=== PATIENT | female | born 1935 | race Two or more races ===

== ENCOUNTER 2017-12-06 01:29 | Inpatient (IN) | payer MEDICARE, MEDICAID ==
[~2017-12-06] VITALS: Ht 160 cm; Wt 55.8 kg
--- NOTE | 2017-12-06 01:50 | NUR ---
MARKETING COMMUNICATIONS ASSISTANT NOTES RECEIVED PATIENT FROM [facility] VIA [employer]. PATIENT IS ALERT AND ORIENTED X3, RWANDAN SPEAKER ONLY. FAMILY AT BEDSIDE. BREATHING EVEN AND UNLABORED. NO SOB NOTED. CURRENTLY WITH NO COMPLAINTS OF PAIN OR DISCOMFORT. IV ON LEFT HAND #20 AND RIGHT AC #20 INTACT AND PATENT. SKIN DRY AND WARM TO TOUCH. PER REPORT BY FILI SQUIRES FROM [facility], PATIENT AND FAMILY FORGOT MEDICATIONS AT HOME AND THEY DO NOT REMEMBER THE MEDICATIONS THE PATIENT IS TAKING EXCEPT FOR ELIQUIS AND LOSARTAN (UNKNOWN DOSAGES AND FREQUENCIES). INSTRUCTED FAMILY TO BRING MEDICATIONS IN AM. PROCESS OF ADMISSION EXPLAINED TO PATIENT. PICTURES OF SKIN TAKEN AND PUT IN CHART. ADMISSION ORDERS WERE OBTAINED FROM DR. LR. ALL OTHER NEEDS ATTENDED TO. CALL LIGHT WITHIN REACH. BED ON LOWEST LOCKED POSITION. WILL CONTINUE TO MONITOR. Addendum: 12/06/17 at 0522 by ANNE DOWNS RN PATIENT'S VITALS UPON ADMISSION": 176/97 HR 70 RR18 TEMP 98.3F O2SAT 98% RA.
[2017-12-06] MEDS ORDERED: Z GUARD REMEDY 2 OZ OINT TP PRN (02:00)
[2017-12-06] MEDS ORDERED: MAGNESIUM HYDROXIDE 30 ML UDC PO PRN (02:00)
[2017-12-06] MEDS ORDERED: MAG HYDROX/AL HYDROX/SIMETH 30 ML UDC PO PRN (02:00)
[2017-12-06 02:39] LABS: BASOPHILS % (AUTO) 0.3 % (0.0-2.0); EOSINOPHILS % (AUTO) 0.8 % (0.0-6.0); HEMATOCRIT 43 % (33-45); HEMOGLOBIN 14.5 g/dL (11.5-14.8); LYMPHOCYTES # (AUTO) 2.2 /CMM (0.8-4.8); LYMPHOCYTES % (AUTO) 30.3 % (20.0-44.0); MEAN CORPUSCULAR HEMOGLOBIN 32 PG (26.0-33.0); MEAN CORPUSCULAR HGB CONC 34 g/dl (31.0-36.0); MEAN CORPUSCULAR VOLUME 95 fL (82-100); MONOCYTES # (AUTO) 0.5 /CMM (0.1-1.30); MONOCYTES % (AUTO) 7.6 % (2.0-12.0); NEUTROPHILS # (AUTO) 4.4 /CMM (1.8-8.9); PLATELET COUNT (AUTO) 190 /CMM (150-450); RDW COEFFICIENT OF VARIATION 13.6 (11.5-15.0); RED BLOOD CELL COUNT(AUTO) 4.55 MIL/uL (4.0-5.2); WHITE BLOOD COUNT (AUTO) 7.2 K/uL (4.3-11.0)
[2017-12-06 02:52] LABS: CALCIUM, SERUM 8.4 mg/dL (8.5-10.1); CARBON DIOXIDE 27 mmol/L (21-32); CHLORIDE 106 mmol/L (98-107); CREATININE 0.8 mg/dL (0.6-1.3); GLUCOSE 106 mg/dL (74-106); POTASSIUM 3.5 mmol/L (3.5-5.1); SODIUM SERUM 140 mmol/L (136-145); UREA NITROGEN, BLOOD 16 mg/dL (7-18)
[2017-12-06 02:54] LABS: INR 1.08 (0.87-1.13)
[2017-12-06 03:05] LABS: ALANINE AMINOTRANSFERASE 19 U/L (12-78); ALBUMIN 3.4 g/dL (3.4-5.0); ALKALINE PHOSPHATASE 128 U/L (46-116); ASPARTATE AMINOTRANSFERASE 21 U/L (15-37); B-TYPE NATRIURETIC PEPTIDE 585 PG/ML (0-125); BILIRUBIN,TOTAL 0.7 mg/dL (0.2-1.0); THYROID STIMULATING HORMONE 1.995 uIU/mL (0.358-3.74); TOTAL PROTEIN, SERUM 7.7 g/dL (6.4-8.2)
--- NOTE | 2017-12-06 03:30 | NUR ---
MILITARY LAWYER NOTES DR. LR WAS PAGED D/T CONSISTENTLY HIGH BP. CURRENT BLOOD PRESSURE: 170/90 HR 61 AWAITING CALL BACK.
--- NOTE | 2017-12-06 04:30 | NUR ---
DIRECTOR PROSPECT NOTES DR. LR CALLED BACK WITH ORDERS FOR CLONODINE 0.1MG PRN FOR SBP >160 - NOTED AND CARRIED OUT.
[2017-12-06] MEDS: CLONIDINE HCL 0.1 MG TABLET PO PRN ×2 (05:29→17:13)
--- NOTE | 2017-12-06 05:53 | NUR ---
CONFIGURATION MANAGEMENT MANAGER NOTES URINE COLLECTED FOR UA MRSA SWAB DONE ON RIGHT NARES.
[2017-12-06] MEDS ORDERED: BLOOD SUGAR DIAGNOSTIC 1 EACH STRIP IN SCH (06:00)
[2017-12-06] MEDS: BLOOD SUGAR DIAGNOSTIC 1 EACH STRIP IN SCH ×4 (06:41→21:14)
[2017-12-06 06:51] LABS: APPEARANCE,URINE CLEAR (CLEAR); BILIRUBIN,URINE NEGATIVE (NEGATIVE); BLOOD, URINE TRACE Ery/uL (NEGATIVE); COLOR,URINE YELLOW (YELLOW); KETONES,URINE NEGATIVE (NEGATIVE); LEUKOCYTE ESTERASE ,URINE TRACE (NEGATIVE); NITRITE, URINE NEGATIVE (NEGATIVE); PH,URINE 6.5 (5.0-8.0); PROTEIN,URINE 1+ mg/dl (NEGATIVE); UGLUCOSE NEGATIVE (NEGATIVE); UROBILINOGEN,URINE 0.2 EU/dL (0.2)
--- NOTE | 2017-12-06 07:00 | NUR ---
CRIBBER CLOSING NOTES PATIENT RESTING IN BED - EASILY AROUSABLE. ALERT AND ORIENTED X3 VERBALLY RESPONSIVE WHEN AWAKE, ESTONIAN SPEAKER ONLY. BREATHING EVEN AND UNLABORED. NO SOB NOTED. CURRENTLY WITH NO COMPLAINTS OF PAIN OR DISCOMFORT. IV ON LEFT HAND #20 AND RIGHT AC #20 INTACT AND PATENT. SKIN DRY AND WARM TO TOUCH. KEPT CLEAN, DRY, AND COMFORTABLE. CALL LIGHT WITHIN REACH. BED ON LOWEST LOCKED POSITION. WILL ENDORSE TO ONCOMING NURSE FOR CONTINUITY OF CARE.
[2017-12-06 07:17] LABS: BACTERIA,URINE Rare /HPF (None Seen); RBC,URINE 0-2 /HPF (0-2); SQUAMOUS EPITHELIAL CELL,UR Few /HPF (None Seen)
--- NOTE | 2017-12-06 07:52 | NUR ---
SAS CLINICAL PROGRAMMER NOTES PT IN BED, AWAKE, ALERT AND ORIENTED, ABLE TO ANSWER QUESTIONS IN NIUEAN, RESPIRATIONS NORMAL, NO COMPLAINT OF SHORTNESS OF BREATH, WITH COMPLAINT OF RIGHT LOWER LEG PAIN, KEPT COMFORTABLE, CALL LIGHT WITHIN REACH.
[2017-12-06 08:00] VITALS: BP 141/83
[2017-12-06] MEDS: PANTOPRAZOLE 40 MG TABLET.DR PO SCH (08:19)
[2017-12-06] MEDS: ASPIRIN EC 325 MG TABLET.DR PO SCH (08:19)
[2017-12-06] MEDS: LOSARTAN POTASSIUM 50 MG TABLET PO SCH (08:19)
[2017-12-06] MEDS: ENOXAPARIN SODIUM 60 MG/0.6 ML DISP.SYRIN SQ SCH ×2 (08:20→21:00)
[2017-12-06 09:02] LABS: INR 1.07 (0.87-1.13)
--- NOTE | 2017-12-06 09:46 | NUR ---
HOT TAR ROOFER HELPER NOTES PT IN BED, AWAKE, ALERT AND VERBALLY RESPONSIVE, COMPLAINING OF LEFT ARM AND LEFT LEG NUMBNESS, DR. JEANETH SANDOVAL MD SEEN AND EXAMINED PT, ORDERED MRI BRAIN WITHOUT CONTRAST, PT WAS ALSO EVALUATED BY SPEECH THERAPIST.
[2017-12-06 10:18] LABS: CHOLESTEROL 174 mg/dL (<200); HDL CHOLESTEROL 52 mg/dL (40-60); LDL 109 mg/dL (0-99); TRIGLYCERIDES 112 mg/dL (30-150)
[2017-12-06] MEDS ORDERED: IV NS 0.9% 250 ML IV ONE (12:11)
[2017-12-06] MEDS ORDERED: CT SWABBABLE VALVE TRANS SET 1 EA INFUS.SET MC ONE (12:11)
[2017-12-06] MEDS ORDERED: IOHEXOL-350 100 ML VIAL IV ONE (12:11)
--- NOTE | 2017-12-06 12:55 | NUR ---
RN MS NOTES RECEIVED VERBAL REPORT FROM DR. LEE REGARDING PT'S ABNORMAL CTA OF THE BRAIN AND CAROTID WELL CAROTID US, DR. YOUNG INFORMED, NO NEW ORDER GIVEN AT THIS TIME, CALLED DR. ERIC, AWAITING CALL BACK.
--- NOTE | 2017-12-06 13:30 | NUR ---
RN MS NOTES NO CALL BACK YET FROM DR. ERIC, A FOLLOW UP CALL WAS MADE.
--- NOTE | 2017-12-06 13:45 | NUR ---
RN MS NOTES NO CALL BACK FROM DR. ERIC YET, DR. YOUNG INFORMED, DR. YOUNG SAID HE WILL INFORM DR. ERIC.
[2017-12-06] MEDS ORDERED: AMLO10TA4 PO (13:51)
[2017-12-06] MEDS ORDERED: BIMA2.5D5 EACHEYE (13:51)
[2017-12-06] MEDS ORDERED: DIGO125T PO (13:51)
[2017-12-06] MEDS ORDERED: APIX2.5T PO (13:51)
[2017-12-06] MEDS ORDERED: BENA20TA9 PO (13:51)
[2017-12-06 16:00] VITALS: BP 161/78
[2017-12-06] MEDS: DIGOXIN 0.125 MG TABLET PO SCH (17:00)
--- NOTE | 2017-12-06 17:29 | NUR ---
RN MS NOTES MED RECON DONE, PER DR. YOUNG, OK TO RESUME DIGOXIN AFTER LEVEL AND LUMIGAN EYE DROPS, NOTED AND CARRIED OUT.
[2017-12-06 17:45] VITALS: BP 149/74
--- NOTE | 2017-12-06 18:30 | NUR ---
RN MS NOTES PT IN BED, AWAKE, VERBALLY RESPONSIVE, DENIES PAIN, NOT IN DISTRESS, OT AT BEDSIDE, NOTED AN EPISODE OF WEAKER LEFT ARM AND SLIGHT MOUTH DROOP DURING OT ASSESSMENT, BUT PT REGAINED STRENGTH FROM LEFT ARM AFTERWARDS, DR. YOUNG INFORMED, NO NEW ORDER GIVEN, WILL CONTINUE NEURO CHECKS, STROKE EDUCATION PROVIDED TO PT AND FAMILY, VERBALIZED UNDERSTANDING.
--- NOTE | 2017-12-06 19:48 | NUR ---
MS RN INITIAL NOTES Report received at bedside. Patient received in bed, awake and comfortable. Alert and oriented x1. On NIHSS assessment, per endorsement. Not in any type of distress. Family at bedside. Safety measures in place. Bed in lowest position with bed alarm on with call light within reach. Will continue to monitor and assess patient.
[2017-12-06 20:17] VITALS: BP 134/77
--- NOTE | 2017-12-06 20:19 | NUR ---
MS RN NOTES Nephew at bedside. Questions and concerns addressed.
[2017-12-06] MEDS: LATANOPROST EYE DROP 0.005% 2.5 ML BOTTLE EACHEYE SCH (21:01)
[2017-12-06] MEDS: SIMVASTATIN 40 MG TABLET PO SCH (21:02)
[2017-12-07] MEDS: CLONIDINE HCL 0.1 MG TABLET PO PRN ×3 (02:02→18:54)
--- NOTE | 2017-12-07 02:02 | NUR ---
MS RN - PRN NOTES V/S 170/90 79 18 97.6 98% RA Clonidine given d/t elevated sbp>160
--- NOTE | 2017-12-07 03:20 | NUR ---
MS RN - REASSESSMENT NOTES B/P 121/56 P 68 R 16 T 97.8 SpO2 98%
[2017-12-07 03:39] VITALS: BP 121/56
[2017-12-07] MEDS: BLOOD SUGAR DIAGNOSTIC 1 EACH STRIP IN SCH ×4 (06:50→21:22)
[2017-12-07 07:11] LABS: BASOPHILS % (AUTO) 0.2 % (0.0-2.0); EOSINOPHILS % (AUTO) 0.4 % (0.0-6.0); HEMATOCRIT 45 % (33-45); LYMPHOCYTES # (AUTO) 2.2 /CMM (0.8-4.8); LYMPHOCYTES % (AUTO) 24.1 % (20.0-44.0); MEAN CORPUSCULAR HEMOGLOBIN 32 PG (26.0-33.0); MEAN CORPUSCULAR HGB CONC 34 g/dl (31.0-36.0); MEAN CORPUSCULAR VOLUME 96 fL (82-100); MONOCYTES # (AUTO) 0.5 /CMM (0.1-1.30); MONOCYTES % (AUTO) 5.1 % (2.0-12.0); NEUTROPHILS # (AUTO) 6.5 /CMM (1.8-8.9); NEUTROPHILS % (AUTO) 70.2 % (43.0-81.0); PLATELET COUNT (AUTO) 212 /CMM (150-450); RDW COEFFICIENT OF VARIATION 13.9 (11.5-15.0); RED BLOOD CELL COUNT(AUTO) 4.67 MIL/uL (4.0-5.2); WHITE BLOOD COUNT (AUTO) 9.3 K/uL (4.3-11.0)
[2017-12-07 07:17] LABS: INR 1.05 (0.87-1.13)
--- NOTE | 2017-12-07 07:19 | NUR ---
324-2 MS RN CLOSING NOTES Patient remained in bed, asleep, easily aroused and comfortable. Alert and oriented x2, verbally responsive in Sami. On NIHSS assessment. No SOB noted, SpO2 @97-98% in room air. Not in any type of distress. Denies any pain. IV on right AC #20g: patent and intact. All needs anticipated and met. Safety measures in place. Bed in lowest position with bed alarm on and call light within reach. Endorsed to oncoming shift nurseAmie, FILI
[2017-12-07 07:20] LABS: CALCIUM, SERUM 8.7 mg/dL (8.5-10.1); CARBON DIOXIDE 25 mmol/L (21-32); CHLORIDE 106 mmol/L (98-107); CREATININE 0.9 mg/dL (0.6-1.3); GLUCOSE 133 mg/dL (74-106); POTASSIUM 3.9 mmol/L (3.5-5.1); SODIUM SERUM 139 mmol/L (136-145); UREA NITROGEN, BLOOD 21 mg/dL (7-18)
--- NOTE | 2017-12-07 07:30 | NUR ---
MS RN OPENING NOTES RECEIVED PT LAYING IN BED, RESTING COMFORTABLE WITH HOB ELEVATED. PT IS A/O X2-3, AFEBRILE. PUPILS ARE REACTIVE TO LIGHT. HAND ECONOMICS DEPARTMENT CHAIR TO RIGHT HAND IS STRONG, LEFT HAND IS WEAK. PT UNABLE TO HOLD LEFT ARM UP FOR >2 SECONDS. FOOT STRENGTH TO RIGHT LEG IS STRONG, LEFT FOOT IS WEAK BUT ABLE TO SLIGHTLY MOVE LEFT LEG. PT DENIES ANY PAIN, SOB. IV SITE RAC INTACT, NO INFILTRATION NOTED. DRESSING KEPT CLEAN AND DRY. WILL CONTINUE TO MONITOR THROUGHOUT SHIFT FOR CONTINUITY OF CARE.
[2017-12-07 08:00] VITALS: BP 170/99
[2017-12-07 08:16] VITALS: BP 170/99
[2017-12-07] MEDS: LOSARTAN POTASSIUM 50 MG TABLET PO SCH (08:18)
[2017-12-07] MEDS: PANTOPRAZOLE 40 MG TABLET.DR PO SCH (08:18)
[2017-12-07] MEDS: ASPIRIN EC 325 MG TABLET.DR PO SCH (08:18)
[2017-12-07] MEDS: ENOXAPARIN SODIUM 60 MG/0.6 ML DISP.SYRIN SQ SCH ×2 (08:26→21:16)
--- NOTE | 2017-12-07 09:55 | NUR ---
MS RN NOTES PT SEEN AND EXAMINED BY DR. HANNAH SAENZ W/ ORDERS TO CONTINUE ASA 325, LOVENOX AND COUMADIN. WILL CONTINUE TO MONITOR THE PT THROUGHOUT SHIFT.
[2017-12-07] MEDS: DIGOXIN 0.125 MG TABLET PO SCH (12:26)
[2017-12-07 16:34] VITALS: BP 159/86
[2017-12-07] MEDS: WARFARIN SODIUM 5 MG TABLET PO SCH (17:11)
--- NOTE | 2017-12-07 18:31 | NUR ---
MS RN CLOSING NOTES ALL DUE MEDS GIVEN, NEEDS MET AND RENDERED. PT IS A/O X2-3, AFEBRILE. RESPIRATIONS ARE EVEN AND UNLABORED, NOT IN ANY ACUTE DISTRESS NOTED. PUPILS ARE REACTIVE TO LIGHT. BILATERAL HAND PROFESSIONAL NURSE ARE STRONG ON RIGHT HAND AND WEAK ON LEFT. FAMILY CONTINUES TO STAY AT BEDSIDE. NO C/O SOB, N/V, PAIN. NO FACIAL GRIMACING NOTED. IV SITE INTACT, NO INFILTRATION NOTED. DRESSING KEPT CLEAN AND DRY. SAFETY MEASURES ARE IN PLACE. BED IS IN ITS LOCKED AND LOWEST POSITION. CALL LIGHT IS LEFT WITHIN REACH. WILL ENDORSE TO NEXT SHIFT FOR CONTINUITY OF CARE.
--- NOTE | 2017-12-07 18:55 | NUR ---
MS RN NOTES PT NOTED W/ BP 187/94. NO NEW SIGNS OF CVA. CONTINUES TO HAVE WEAKNESS TO LEFT ARM AND LEG. WILL ADMINISTER CLONIDINE ORDERED.
--- NOTE | 2017-12-07 19:40 | NUR ---
MS RN OPENING NOTES RECEIVED PT LAYING IN BED, RESTING COMFORTABLE WITH HOB ELEVATED. PT IS A/O X2-3, AFEBRILE. PUPILS ARE REACTIVE TO LIGHT. HAND DYNAMOMETER REPAIRER TO RIGHT HAND IS STRONGER THAN LEFT SIDE. PT UNABLE TO HOLD LEFT ARM UP FOR >3 SEC. FOOT STRENGTH TO RIGHT LEG IS STRONG, LEFT FOOT IS WEAK BUT ABLE TO SLIGHTLY MOVE LEFT LEG. PT DENIES ANY PAIN, SOB. IV SITE RAC INTACT, SL. NO INFILTRATION NOTED. DRESSING CLEAN AND DRY. WILL CONTINUE TO MONITOR THROUGHOUT SHIFT FOR CONTINUITY OF CARE. FAMILY @ BED SIDE.
[2017-12-07 20:00] VITALS: BP 166/79
[2017-12-07] MEDS: SIMVASTATIN 40 MG TABLET PO SCH (21:14)
[2017-12-07] MEDS: LATANOPROST EYE DROP 0.005% 2.5 ML BOTTLE EACHEYE SCH (21:15)
[2017-12-07 21:45] VITALS: BP 155/82
[2017-12-08] MEDS: BLOOD SUGAR DIAGNOSTIC 1 EACH STRIP IN SCH ×4 (06:20→22:04)
--- NOTE | 2017-12-08 06:29 | NUR ---
MS RN CLOSING NOTES PT IN BED, RESTING COMFORTABLE WITH HOB ELEVATED. PT IS A/O X2. PT WITH LEFT SIDED WEAKNESS DUE TO CVA. PT UNABLE TO HOLD LEFT HAND LONGER THAN 3 SEC. PT DENIES ANY PAIN AT THIS TIME. IV SITE RAC INTACT/ SL, FLUSHING WELL.SAFETY PRECAUTIONS IN PLACE, CALL LIGHT WITHIN REACH. WILL ENDORSE TO NEXT SHIFT FOR RAISSA.
[2017-12-08 07:35] LABS: CALCIUM, SERUM 8.7 mg/dL (8.5-10.1); CARBON DIOXIDE 25 mmol/L (21-32); CHLORIDE 106 mmol/L (98-107); GLUCOSE 110 mg/dL (74-106); POTASSIUM 3.7 mmol/L (3.5-5.1); SODIUM SERUM 142 mmol/L (136-145); UREA NITROGEN, BLOOD 26 mg/dL (7-18)
[2017-12-08 07:36] LABS: INR 1.21 (0.87-1.13)
[2017-12-08 07:46] LABS: BASOPHILS % (AUTO) 0.3 % (0.0-2.0); HEMATOCRIT 46 % (33-45); HEMOGLOBIN 15.2 g/dL (11.5-14.8); LYMPHOCYTES # (AUTO) 1.9 /CMM (0.8-4.8); LYMPHOCYTES % (AUTO) 28.9 % (20.0-44.0); MEAN CORPUSCULAR HEMOGLOBIN 32 PG (26.0-33.0); MEAN CORPUSCULAR HGB CONC 34 g/dl (31.0-36.0); MEAN CORPUSCULAR VOLUME 96 fL (82-100); MONOCYTES # (AUTO) 0.5 /CMM (0.1-1.30); MONOCYTES % (AUTO) 7.4 % (2.0-12.0); NEUTROPHILS # (AUTO) 4.2 /CMM (1.8-8.9); NEUTROPHILS % (AUTO) 62.4 % (43.0-81.0); PLATELET COUNT (AUTO) 193 /CMM (150-450); RDW COEFFICIENT OF VARIATION 13.8 (11.5-15.0); RED BLOOD CELL COUNT(AUTO) 4.75 MIL/uL (4.0-5.2); WHITE BLOOD COUNT (AUTO) 6.7 K/uL (4.3-11.0)
[2017-12-08 08:00] VITALS: BP 149/84
[2017-12-08] MEDS: PANTOPRAZOLE 40 MG TABLET.DR PO SCH (08:26)
[2017-12-08] MEDS: ASPIRIN EC 325 MG TABLET.DR PO SCH (08:26)
[2017-12-08] MEDS: LOSARTAN POTASSIUM 50 MG TABLET PO SCH (08:27)
[2017-12-08] MEDS: ENOXAPARIN SODIUM 60 MG/0.6 ML DISP.SYRIN SQ SCH (08:29)
[2017-12-08] MEDS: DIGOXIN 0.125 MG TABLET PO SCH (13:03)
[2017-12-08 16:00] VITALS: BP 189/106
[2017-12-08] MEDS: ACETAMINOPHEN 325 MG TABLET PO PRN ×2 (16:10→23:15)
[2017-12-08] MEDS: CLONIDINE HCL 0.1 MG TABLET PO PRN (16:23)
[2017-12-08 16:30] VITALS: BP 178/93
[2017-12-08] MEDS: WARFARIN SODIUM 5 MG TABLET PO SCH (17:50)
--- NOTE | 2017-12-08 18:46 | NUR ---
MS RN NOTES PATIENT IN BED ALERT ORIENTED X 3. FAMILY AT BEDSIDE. WITH STABLE VITAL SIGNS. NO ACUTE DISTRESS NOTED. BREATHING UNLABORED. NO SOB NOTED. DENIED ANY PAIN. SAFETY MEASURES IN PLACE,CALL LIGHT WITHIN REACH. IV ACCESS PATENT AND INTACT, NO REDNESS OR SWELLING NOTED. DUE MEDICATIONS GIVEN, NO ASE NOTED. NEEDS ATTENDED AND ANTICIPATED. KEPT CLEAN , DRY AND COMFORTABLE. WILL CONTINUE TO MONITOR ACCORDINGLY. WILL ENDORSE TO NIGHT NURSE FOR CONTINUITY IF CARE.
--- NOTE | 2017-12-08 19:30 | NUR ---
MS RN OPENING NOTES PATIENT IN BED ALERT ORIENTED X 2. FAMILY AT BEDSIDE. BP 150/81 HR 75. NO ACUTE DISTRESS NOTED. BREATHING UNLABORED. NO SOB NOTED,NO PAIN AT THIS TIME. SAFETY MEASURES IN PLACE,CALL LIGHT WITHIN REACH. IV ACCESS PATENT AND INTACT. WILL CONTINUE TO MONITOR.
[2017-12-08 20:00] VITALS: BP 150/81
[2017-12-08] MEDS: SIMVASTATIN 40 MG TABLET PO SCH (22:00)
[2017-12-08] MEDS: LATANOPROST EYE DROP 0.005% 2.5 ML BOTTLE EACHEYE SCH (22:01)
[2017-12-09] VITALS (32 sets, daily range): BP systolic 126–230; BP diastolic 61–116
[2017-12-09] MEDS: HYDROCODONE/APAP 5/325MG 1 EACH TABLET PO PRN ×4 (02:01→20:38)
--- NOTE | 2017-12-09 02:07 | NUR ---
PT COMPLAINS OF HEADACHE 01/07. NO CHANGES IN MENTAL STATUS OR DISTRESS NOTED. BP IS 145/73 HR 79. PRN NORCO WAS GIVEN. WILL CONTINUE TO MONITOR AND REASSESS PAIN .
[2017-12-09] MEDS: CLONIDINE HCL 0.1 MG TABLET PO PRN ×3 (05:42→22:15)
--- NOTE | 2017-12-09 05:48 | NUR ---
pt's bp is 186/99. prn Catapres given. will reassess
--- NOTE | 2017-12-09 06:34 | NUR ---
pt bp 146/79 hr 65. o2 saturation 98 % . pt a/o x3 and responsive
[2017-12-09 06:37] LABS: INR 2.32 (0.87-1.13)
[2017-12-09] MEDS: BLOOD SUGAR DIAGNOSTIC 1 EACH STRIP IN SCH ×4 (06:38→22:00)
--- NOTE | 2017-12-09 06:45 | NUR ---
QUALITY ASSURANCE MONITOR - PT. APPEARS MORE RELAXED & IS RESTING W/EYES CLOSED. COM - PLETE BEDBATH ADM. W/ADULT DIAPER CHANGED. PT. STILL HAS ZURITA-NOW AT PAIN LEVEL (6). TYLENOL GIVEN AT 01:54 & 04:50, HYDRALAZINE 10MG IV WAS ADM. AT 00:30, MORPHINE SULFATE 2MG-SLOW IVP WAS ADM. AT 0018 & AT 05:23, CLONIDINE AT 22:15,NORCO ONE TAB. ADM. AT SOS=20:38. PT'S SBP WAS VERY LABILE AT SOS, BUT NOW SBP'S ARE IN THE 140'S. PT. SWALLOWS SLOWLY, BUT WELL IN HIGH FOWLERS POSITION. ROOM AIR W/O2 SATS >97%. AFEBRILE. PT.DOES HAVE LEFT SIDED FACIAL DROOP & IS FLACCID ON LEFT SIDE, PT.MOVES RT. SIDE WELL. CONT.POC. REPORT ENDORSED TO STANLEY PENN.
--- NOTE | 2017-12-09 07:06 | NUR ---
PT IN BED SLEEPING, AROUSES EASILY. LAST BP READING IS 136/69. PT HEADACHE RELIEVED.PT NEEDS ANTICIPATED. SAFETY PRECAUTIONS IN PLACE , CALL LIGHT WITHIN REACH . WILL ENDORSE TO NEXT SHIFT FOR RAISSA.
--- NOTE | 2017-12-09 07:10 | NUR ---
MS RN NOTES PATIENT IN BED SLEEPING , AROUSABLE, RESPOND TO QUESTIONS APPROPRIATELY. NO ACUTE DISTRESS NOTED. BREATHING UNLABORED. DENIED ANY PAIN. NO SOB NOTED. SAFETY MEASURES IN PLACE. IV ACCESS PATENT AND INTACT, NO REDNESS AND SWELLING NOTED. WILL CONTINUE TO MONITOR ACCORDINGLY.
[2017-12-09] MEDS: PANTOPRAZOLE 40 MG TABLET.DR PO SCH ×2 (07:30→08:34)
[2017-12-09] MEDS ORDERED: PHYTONADIONE INJ 10 MG/1 ML AMPUL SQ ONE (08:00)
[2017-12-09] MEDS: ASPIRIN EC 325 MG TABLET.DR PO SCH (08:34)
[2017-12-09] MEDS: LOSARTAN POTASSIUM 50 MG TABLET PO SCH ×2 (08:35→09:00)
--- NOTE | 2017-12-09 09:58 | NUR ---
MS RN NOTES HEAD CT RESULTED, NOTIFIED DR HANNAH DAVILA AND SEEN AND EVALUATED PATIENT WITH ORDERS TO TRANSFER TO ICU FOR HIGHER LEVEL OF CARE. NOTED AND CARRIED OUT.
--- NOTE | 2017-12-09 10:10 | NUR ---
MS RN NOTES PATIENT TRANSPORTED TO ICU WITH STABLE VITAL SIGNS, AWAKE , SPEAKING CLEARLY. PLACED ON TELE MONITOR ,SINUS RHYTHM , PATIENT REMAINS IN STABLE CONDITION DURING TRANSPORT. ALL BELONGINGS AND MEDICATION HANDED TO THE NURSE, REPORT GIVEN TP GREG BEDSIDE. SON AWARE OF TRANSFER.
--- NOTE | 2017-12-09 10:30 | NUR ---
PATIENT TRANSFERRED FROM [facility] FOR NEW SUBDURAL HEMORRHAGE PER CT HEAD RESULTS. PATIENT AWAKE AND SPEAKING IN IRISH WITH CLEAR SPEECH. SBP>170'S. SPOKE TO DR. CARLOS ORANTES SPOKE TO DR. ERIC REGARDING NEW CT HEAD RESULTS. HAD CONSULTED DR. AGUILERA FOR NEUROSURGICAL EVAL. KEEP SBP BETWEEN 160-180.
--- NOTE | 2017-12-09 12:00 | NUR ---
PATIENT FAMILY AT BEDSIDE-UPDATED WITH PATIENT CONDITION AND PLAN OF CARE. BLOOD TRANSFUSION CONSENT SIGNED BY DANIEL ANGUIANO.
[2017-12-09] MEDS: ONDANSETRON HCL/PF 4 MG/2 ML VIAL IVP PRN (12:53)
[2017-12-09] MEDS: ACETAMINOPHEN 325 MG TABLET PO PRN (12:58)
[2017-12-09] MEDS: DIGOXIN 0.125 MG TABLET PO SCH (12:58)
--- NOTE | 2017-12-09 13:00 | NUR ---
PATIENT COMPLAINED OF HEADACHE, VOMITTED X1, ZOFRAN IVP GIVEN. TYLENOL 650 MG PO GIVEN. SWALLOWS WITHOUT DIFFICULTY.
--- NOTE | 2017-12-09 14:10 | NUR ---
FFP TRANSFUSION STARTED PER PROTOCOL. CONTINUE TO MONITOR CLOSELY.
--- NOTE | 2017-12-09 15:25 | NUR ---
1ST UNIT OF FFP COMPLETED WITHOUT A/R NOTED. PATIENT NEURO STATUS UNCHANGED. ABLE TO VERBALLY EXPRESS NEEDS IN ICELANDIC TO FAMILY AT BEDSIDE. PER FAMILY-ABLE TO UNDERSTAND HER CLEARLY.
--- NOTE | 2017-12-09 16:00 | NUR ---
PATIENT STILL COMPLAINING OF HEADACHE, NORCO 1 TABLET PO GIVEN. ICE PACK APPLIED TO FOREHEAD.
--- NOTE | 2017-12-09 16:30 | NUR ---
INCREASED SBP 190. MEDIACTED WITH CLONIDINE 0.1 MG PO ORDERED PRN.
--- NOTE | 2017-12-09 16:45 | NUR ---
2ND UNIT OF FFP COMPLETED. NO SIGNS OF TRANSFUSION REACTION NOTED.
--- NOTE | 2017-12-09 17:20 | NUR ---
PATIENT FAMILY DECIDED TO CHANGE CODE STATUS TO DNR/DNI. DR. YOUNG MADE AWARE AND OBTAINED ORDERS.
--- NOTE | 2017-12-09 18:30 | NUR ---
NO SIGNIFICANT CHANGE IN NEURO STATUS. SBP>150. V PACED ON MONITOR. FAMILY AT BEDSIDE.
[2017-12-09 19:02] LABS: INR 1.81 (0.87-1.13)
[2017-12-09] MEDS: LATANOPROST EYE DROP 0.005% 2.5 ML BOTTLE EACHEYE SCH (20:39)
--- NOTE | 2017-12-09 21:00 | NUR ---
TANBARK LABORER - REC'D PT. IN RM#252, FRENCH SPEAKING ONLY. PT. IS C/O SEVERE ZURITA. NORCO ONE TAB PO ADM. PT. SWALLOWS FINE. SEVERAL INTERPRETERS USED & PT. REPEATED HER NAME & KNOWS SHE IS IN THE HOSPITAL. SBP'S ARE VERY LABILE. THEY SHOOT UP W.TACTILE STIMULUS. POOR APPETITE, BUT PT. FREQUENTLY ASKS FOR H20 PT'S FAMILY WAS HERE BEGINNING OF SHIFT & LEFT EARLY. THE SON WAS GIVEN ANOTHER STATUS UPDATE OVER PHONE. LEFT SIDED DEFICITS. PIV'S X 2 ARE BOTH PATENT TO FLUSH. HEART MONITOR SHOWS AFIB W/V PACING. PACER TO LEFT C/W. CONT.POC.
[2017-12-09] MEDS: SIMVASTATIN 40 MG TABLET PO SCH (22:15)
[2017-12-10] VITALS (45 sets, daily range): BP systolic 102–197; BP diastolic 52–93
[2017-12-10] MEDS: MORPHINE SULFATE INJ 2 MG/ML DISP.SYRIN IV PRN ×4 (00:18→23:38)
[2017-12-10] MEDS: hydrALAZINE HCL IV 20 MG VIAL IV PRN ×3 (00:22→23:12)
[2017-12-10] MEDS: ACETAMINOPHEN 325 MG TABLET PO PRN ×3 (01:54→10:45)
[2017-12-10 04:38] LABS: BASOPHILS % (AUTO) 0.2 % (0.0-2.0); EOSINOPHILS % (AUTO) 0.1 % (0.0-6.0); HEMATOCRIT 46 % (33-45); HEMOGLOBIN 15.4 g/dL (11.5-14.8); LYMPHOCYTES # (AUTO) 1.7 /CMM (0.8-4.8); LYMPHOCYTES % (AUTO) 14.7 % (20.0-44.0); MEAN CORPUSCULAR HEMOGLOBIN 32 PG (26.0-33.0); MEAN CORPUSCULAR HGB CONC 34 g/dl (31.0-36.0); MEAN CORPUSCULAR VOLUME 96 fL (82-100); MONOCYTES # (AUTO) 0.8 /CMM (0.1-1.30); MONOCYTES % (AUTO) 7.4 % (2.0-12.0); NEUTROPHILS # (AUTO) 8.9 /CMM (1.8-8.9); NEUTROPHILS % (AUTO) 77.6 % (43.0-81.0); PLATELET COUNT (AUTO) 189 /CMM (150-450); RDW COEFFICIENT OF VARIATION 13.7 (11.5-15.0); RED BLOOD CELL COUNT(AUTO) 4.76 MIL/uL (4.0-5.2); WHITE BLOOD COUNT (AUTO) 11.5 K/uL (4.3-11.0)
[2017-12-10 04:54] LABS: INR 2.31 (0.87-1.13)
[2017-12-10 04:57] LABS: CARBON DIOXIDE 27 mmol/L (21-32); CHLORIDE 102 mmol/L (98-107); CREATININE 0.9 mg/dL (0.6-1.3); GLUCOSE 123 mg/dL (74-106); MAGNESIUM 1.9 mg/dL (1.8-2.4); PHOSPHORUS 3.2 mg/dL (2.5-4.9); POTASSIUM 3.7 mmol/L (3.5-5.1); SODIUM SERUM 139 mmol/L (136-145); UREA NITROGEN, BLOOD 21 mg/dL (7-18)
--- NOTE | 2017-12-10 07:15 | NUR ---
MINE ANALYST NOTES RECEIVED PATIENT AOX2-3 , UKRAINIAN SPEAKING ONLY , NOT IN ACUTE DISTRESS , DENIES SOB , COMPLAINING OF NECK PAIN 10/07 , LEFT SIDED WEAKNESS NOTED , AFIB 70 ON BEDSIDE MONITOR , IV OF R AC AND R FA # 20 PATENT AND INTACT , NO ACTIVE BLEEDING NOTED , WILL CONTINUE TO MONITOR
[2017-12-10] MEDS: PANTOPRAZOLE 40 MG TABLET.DR PO SCH (08:04)
[2017-12-10] MEDS: LOSARTAN POTASSIUM 50 MG TABLET PO SCH (08:04)
[2017-12-10] MEDS: BLOOD SUGAR DIAGNOSTIC 1 EACH STRIP IN SCH ×4 (08:06→21:38)
--- NOTE | 2017-12-10 08:15 | NUR ---
PROFILER NOTES NOTIFIED DR YOUNG REGARDING PT OF 24.2 , INR 2.31 PT STILL COMPLAINING OF HEADACHE AND NECK PAIN 5/10 PRN NORCO GIVEN , BP OF 166/76 , MD AWARE . NO NEW ORDERS RECEIVED .
[2017-12-10] MEDS: HYDROCODONE/APAP 5/325MG 1 EACH TABLET PO PRN ×3 (08:26→23:05)
--- NOTE | 2017-12-10 10:12 | NUR ---
APARTMENT MAINTENANCE SUPERVISOR NOTES SEEN AND EVALUATED BY DR ERIC , PT IS AOX3 , COMPLAINING OF HEADACHE , BP OF 160-170'S , DISCUSSED LABS , NO ACTIVE BLEEDING NOTED , PER MD REPEAT HEAD CT WITHOUT CONTRAST , INR / PT @ 1200 , VITAMIN K 10MG SQ , ORDERS CARRIED OUT
[2017-12-10] MEDS ORDERED: PHYTONADIONE INJ 10 MG/1 ML AMPUL SQ ONE (10:30)
--- NOTE | 2017-12-10 10:50 | NUR ---
SPEECH AND LANGUAGE TUTOR NOTES TRANSFERRED PT TO RADIOLOGY DEPARTMENT VIA ACLS PROTOCOL FOR CT OF THE HEAD , VSS ,
--- NOTE | 2017-12-10 11:32 | NUR ---
PARACHUTE CROWN SEWER NOTES RECEIVED A CALL FROM DR ACOSTA REGARDING ABNORMAL HEAD CT RESULT , WILL CONTINUE TO MONITOR
[2017-12-10] MEDS: LISINOPRIL (20MG) 20 MG TABLET PO SCH ×2 (11:33→21:32)
--- NOTE | 2017-12-10 11:52 | NUR ---
PRINTED CIRCUIT BOARD PANELS TRIMMER NOTES PAGED DR ERIC EXCHANGE TO NOTIFY HEAD CT RESULT , SPOKE WITH MAURICIO , LEFT A MESSAGE , AWAITING FOR CALL BACK
--- NOTE | 2017-12-10 12:08 | NUR ---
SYRUP SHED SUPERVISOR NOTES CHARGE NURSE DEWEY RECEIVED A CALL FROM DR ERIC , DISCUSSED HEAD CT RESULT , AWARE , NO NEW ORDERS
[2017-12-10] MEDS: DIGOXIN 0.125 MG TABLET PO SCH (12:11)
[2017-12-10 12:32] LABS: INR 2.12 (0.87-1.13)
[2017-12-10] MEDS: ONDANSETRON HCL/PF 4 MG/2 ML VIAL IVP PRN (12:35)
--- NOTE | 2017-12-10 13:22 | NUR ---
MAINTENANCE MANAGER NOTES CALLED DR MANUEL OFFICE @ [phone] MD AWARE , PER MD DR YOUNG NEEDS TO CALL HIM , NOTIFIED DR HANNAH MD AWARE
--- NOTE | 2017-12-10 17:11 | NUR ---
SIDING MECHANIC NOTES 1ST BAG OF CRYOPRECIPITATE GIVEN , VSS , NO TRANSFUSION REACTION NOTED ,
--- NOTE | 2017-12-10 17:39 | NUR ---
MIDDLE SCHOOL RESOURCE TEACHER NOTES 2ND BAG OF CRYOPRECIPITATE GIVEN , VSS , NO TRANSFUSION REACTION NOTED ,
--- NOTE | 2017-12-10 19:20 | NUR ---
ICU/RN RECEIVED PT AWAKE ALERT OX3.NEURO STATUS UNCHANGED,W/LEFT HEMIPARESIS.MONITOR NSR.WHEN ASKED IF SHE HAS HEADACHE.GRADED H/A 2/10 BUT NOT WANTING PAIN MEDICATION.SATURATING 10% ON 2L/NC.
[2017-12-10] MEDS: LATANOPROST EYE DROP 0.005% 2.5 ML BOTTLE EACHEYE SCH (21:27)
[2017-12-10] MEDS: SIMVASTATIN 40 MG TABLET PO SCH (21:32)
[2017-12-11] VITALS (40 sets, daily range): BP systolic 118–187; BP diastolic 52–97
[2017-12-11 04:41] LABS: BASOPHILS % (AUTO) 0.3 % (0.0-2.0); EOSINOPHILS % (AUTO) 0.3 % (0.0-6.0); HEMATOCRIT 42 % (33-45); HEMOGLOBIN 14.2 g/dL (11.5-14.8); LYMPHOCYTES # (AUTO) 1.7 /CMM (0.8-4.8); MEAN CORPUSCULAR HEMOGLOBIN 32 PG (26.0-33.0); MEAN CORPUSCULAR HGB CONC 34 g/dl (31.0-36.0); MEAN CORPUSCULAR VOLUME 95 fL (82-100); MONOCYTES # (AUTO) 0.7 /CMM (0.1-1.30); MONOCYTES % (AUTO) 7.6 % (2.0-12.0); NEUTROPHILS # (AUTO) 7.2 /CMM (1.8-8.9); NEUTROPHILS % (AUTO) 73.8 % (43.0-81.0); PLATELET COUNT (AUTO) 186 /CMM (150-450); RDW COEFFICIENT OF VARIATION 14.2 (11.5-15.0); RED BLOOD CELL COUNT(AUTO) 4.41 MIL/uL (4.0-5.2); WHITE BLOOD COUNT (AUTO) 9.7 K/uL (4.3-11.0)
[2017-12-11 04:53] LABS: INR 1.52 (0.87-1.13)
[2017-12-11] MEDS: HYDROCODONE/APAP 5/325MG 1 EACH TABLET PO PRN ×2 (04:53→10:56)
[2017-12-11 05:03] LABS: CALCIUM, SERUM 8.6 mg/dL (8.5-10.1); CARBON DIOXIDE 27 mmol/L (21-32); CHLORIDE 103 mmol/L (98-107); CREATININE 0.8 mg/dL (0.6-1.3); GLUCOSE 106 mg/dL (74-106); PHOSPHORUS 3.1 mg/dL (2.5-4.9); POTASSIUM 3.7 mmol/L (3.5-5.1); SODIUM SERUM 141 mmol/L (136-145); UREA NITROGEN, BLOOD 29 mg/dL (7-18)
--- NOTE | 2017-12-11 06:31 | NUR ---
ICU/RN/ NO NEW NEURO DEFICIT.MILD WEAKNESS TO LT SIDE.TAKING SIPS OF WATER AND JUICE W/RENATO ASPIRATIO.HOB AT 30 DEGREES. Addendum: 12/11/17 at 0654 by MACIEL BAXTER RN WITHOUT ASPIRATION.
[2017-12-11] MEDS: BLOOD SUGAR DIAGNOSTIC 1 EACH STRIP IN SCH ×4 (08:17→21:12)
[2017-12-11] MEDS: LOSARTAN POTASSIUM 50 MG TABLET PO SCH (08:18)
[2017-12-11] MEDS: PANTOPRAZOLE 40 MG TABLET.DR PO SCH (08:18)
[2017-12-11] MEDS: LISINOPRIL (20MG) 20 MG TABLET PO SCH ×2 (08:18→21:12)
[2017-12-11] MEDS: CLONIDINE HCL 0.1 MG TABLET PO PRN ×2 (10:02→16:46)
[2017-12-11] MEDS ORDERED: PHYTONADIONE INJ 10 MG/1 ML AMPUL SQ ONE (12:30)
[2017-12-11] MEDS: DIGOXIN 0.125 MG TABLET PO SCH (12:39)
[2017-12-11] MEDS: MORPHINE SULFATE INJ 2 MG/ML DISP.SYRIN IV PRN ×2 (12:50→21:21)
--- NOTE | 2017-12-11 18:31 | NUR ---
RN NOTE 0720: Received patient awake, A/Ox3, Uzbek speaking, noted with left sided weakness due to stroke. PIVs intact. Afib with Vpacing on the monitor. 09: S/E by Dr. Rahman, made aware still with c/o headache usually. Made MD aware re: the episodes of high BP, PRN BP meds given. 1200: Noted with coughing during swallowing, stopped and will F/U with ST. 1300: Followed up with Radio re: the CT head, said they will call again when ready. 1330: S/E by Dr. Simmons, no new order at this time. 1500: Called Radiology again for CT, they said still needed time, will call again, made CN aware. 1830: No any significant changes noted. Family at bedside, aware for the POC. Kept clean, warm and dry. Needs attended. Kept call light at reach.
--- NOTE | 2017-12-11 18:41 | NUR ---
RN NOTES: PT AWAKE AND ALERT TO NAME AND FAMILY MEMBERS. ON O2 AT 2L NC. NO SOB NOTED. PRESENTED WITH LEFT SIDED WEAKNESS. PARTIAL HEMIANOPIA NOTED ON L SIDE. HL ON RIGHT AND LEFT FOREARM GAUGE 20'S. ASSISTED WITH FEEDING. INCONTINENCE CARE DONE, NO SKIN BREAKDOWN. SCD'S BLE. TURNED AND REPOSITIONED FOR COMFORT. BED LOW AND LOCKED. CALL LIGHT WITHIN REACHED. HOURLY ROUNDING DONE. FAMILY AT BEDSIDE. WILL CONTINUE TO MONITOR.
--- NOTE | 2017-12-11 19:00 | NUR ---
RN INITIAL NOTES RECEIVED THE PATIENT AWAKE ON BED, A/O X3 WITH PERIODS OF CONFUSION. PT HAS SEVERE LEFT SIDED WEAKNESS WITH LEFT FACIAL DROOP. ON 2L NASAL CANNULA, SATURATING WELL, NO S/S OF RESP DISTRESS. PT IS AFIB ON THE MONITOR WITH OCCASIONAL VPACING, HR 60-70'S. SBP IS 170'S, WILL ADMINISTER PRN HYDRALAZINE TO KEEP SBP < 160. ON DIAPERS ONLY. RIGHT FOREARM 20G AND LEFT FOREARM 20G BOTH FLUSHED AND PATENT, NO S/S OF INFILTRATION/INFECTION, DRESSINGS CDI. BED LOW AND LOCKED, SIDERAILS UP, CALL LIGHT WITHIN REACH. WILL MONITOR
[2017-12-11] MEDS: hydrALAZINE HCL IV 20 MG VIAL IV PRN (19:28)
[2017-12-11] MEDS ORDERED: SIMVASTATIN 40 MG TABLET ONE (21:07)
[2017-12-11] MEDS: SIMVASTATIN 40 MG TABLET PO SCH (21:12)
[2017-12-11] MEDS: LATANOPROST EYE DROP 0.005% 2.5 ML BOTTLE EACHEYE SCH (21:14)
[2017-12-12] VITALS (26 sets, daily range): BP systolic 97–179; BP diastolic 45–91
[2017-12-12] MEDS: MORPHINE SULFATE INJ 2 MG/ML DISP.SYRIN IV PRN ×2 (01:17→05:05)
[2017-12-12 04:39] LABS: BASOPHILS % (AUTO) 0.1 % (0.0-2.0); EOSINOPHILS % (AUTO) 0.3 % (0.0-6.0); HEMATOCRIT 40 % (33-45); HEMOGLOBIN 13.7 g/dL (11.5-14.8); LYMPHOCYTES # (AUTO) 1.4 /CMM (0.8-4.8); LYMPHOCYTES % (AUTO) 10.2 % (20.0-44.0); MEAN CORPUSCULAR HEMOGLOBIN 32 PG (26.0-33.0); MEAN CORPUSCULAR HGB CONC 34 g/dl (31.0-36.0); MEAN CORPUSCULAR VOLUME 95 fL (82-100); MONOCYTES # (AUTO) 0.8 /CMM (0.1-1.30); MONOCYTES % (AUTO) 6.1 % (2.0-12.0); NEUTROPHILS % (AUTO) 83.3 % (43.0-81.0); PLATELET COUNT (AUTO) 181 /CMM (150-450); RDW COEFFICIENT OF VARIATION 14.3 (11.5-15.0); RED BLOOD CELL COUNT(AUTO) 4.26 MIL/uL (4.0-5.2); WHITE BLOOD COUNT (AUTO) 13.3 K/uL (4.3-11.0)
[2017-12-12 04:56] LABS: CALCIUM, SERUM 8.7 mg/dL (8.5-10.1); CARBON DIOXIDE 27 mmol/L (21-32); CHLORIDE 104 mmol/L (98-107); CREATININE 0.8 mg/dL (0.6-1.3); GLUCOSE 118 mg/dL (74-106); PHOSPHORUS 3.2 mg/dL (2.5-4.9); POTASSIUM 3.8 mmol/L (3.5-5.1); SODIUM SERUM 140 mmol/L (136-145); UREA NITROGEN, BLOOD 31 mg/dL (7-18)
--- NOTE | 2017-12-12 06:20 | NUR ---
RN CLOSING NOTES PT REMAINS STABLE OF THE MOMENT. ALL DUE MEDS GIVEN, AM CARE PROVIDED. WILL ENDORSE RAISSA TO AM RN
[2017-12-12] MEDS: hydrALAZINE HCL IV 20 MG VIAL IV PRN ×2 (06:58→18:47)
[2017-12-12] MEDS: BLOOD SUGAR DIAGNOSTIC 1 EACH STRIP IN SCH ×4 (07:30→21:13)
[2017-12-12] MEDS: LISINOPRIL (20MG) 20 MG TABLET PO SCH ×3 (08:48→20:48)
[2017-12-12] MEDS: LOSARTAN POTASSIUM 50 MG TABLET PO SCH (08:49)
[2017-12-12] MEDS: PANTOPRAZOLE 40 MG TABLET.DR PO SCH (09:22)
--- NOTE | 2017-12-12 10:00 | NUR ---
rn notes pt seen and assessed by Dr Rahman
[2017-12-12 11:30] LABS: INR 1.15 (0.87-1.13)
[2017-12-12] MEDS: DIGOXIN 0.125 MG TABLET PO SCH (12:19)
--- NOTE | 2017-12-12 18:49 | NUR ---
RN NOTES PT NOTED WITH ELEVATED BP BUT REMAINS ASYMPTOMATIC; PRN HYDRALAZINE GIVEN ORDERED
[2017-12-12] MEDS: SIMVASTATIN 40 MG TABLET PO SCH (21:13)
[2017-12-12] MEDS: HYDROCODONE/APAP 5/325MG 1 EACH TABLET PO PRN (22:44)
[2017-12-12] MEDS ORDERED: LATANOPROST EYE DROP 0.005% 2.5 ML BOTTLE ONE (23:51)
[2017-12-12] MEDS: LATANOPROST EYE DROP 0.005% 2.5 ML BOTTLE EACHEYE SCH (23:54)
[2017-12-13] VITALS (8 sets, daily range): BP systolic 134–177; BP diastolic 57–78
--- NOTE | 2017-12-13 00:03 | NUR ---
RN NOTE LATANOPROST EYE DROPS WERE ADMINISTERED 1 HOUR LATER [facility]. WAS NOT AVAILABLE, LEADERSHIP PROGRAM ASSOCIATE IS AWARE
[2017-12-13] MEDS: hydrALAZINE HCL IV 20 MG VIAL IV PRN ×3 (02:01→16:29)
--- NOTE | 2017-12-13 07:06 | NUR ---
RN NOTE NO ACUTE CHANGES ON MY SHIFT, PATIENT RESTED WELL AT NIGHT, NO DISTRESS NOTED, TURNED AND REPOSITION, ALL SAFETY MEASURES TAKEN, WILL ENDORSE TO AM SHIFT TO CONTINUE CARE
[2017-12-13] MEDS: PANTOPRAZOLE 40 MG TABLET.DR PO SCH ×2 (07:30→08:34)
[2017-12-13 07:45] LABS: CALCIUM, SERUM 8.8 mg/dL (8.5-10.1); CARBON DIOXIDE 28 mmol/L (21-32); CHLORIDE 106 mmol/L (98-107); CREATININE 0.8 mg/dL (0.6-1.3); GLUCOSE 99 mg/dL (74-106); MAGNESIUM 2.2 mg/dL (1.8-2.4); POTASSIUM 3.5 mmol/L (3.5-5.1); SODIUM SERUM 142 mmol/L (136-145); UREA NITROGEN, BLOOD 38 mg/dL (7-18)
[2017-12-13 07:49] LABS: INR 1.06 (0.87-1.13)
[2017-12-13] MEDS: LISINOPRIL (20MG) 20 MG TABLET PO SCH ×4 (08:34→21:41)
[2017-12-13] MEDS: LOSARTAN POTASSIUM 50 MG TABLET PO SCH ×3 (08:34→11:48)
[2017-12-13] MEDS: HYDROCODONE/APAP 5/325MG 1 EACH TABLET PO PRN ×3 (08:34→21:44)
[2017-12-13] MEDS: BLOOD SUGAR DIAGNOSTIC 1 EACH STRIP IN SCH ×4 (08:35→21:41)
[2017-12-13] MEDS: ONDANSETRON HCL/PF 4 MG/2 ML VIAL IVP PRN (08:55)
[2017-12-13] MEDS: MORPHINE SULFATE INJ 2 MG/ML DISP.SYRIN IV PRN (09:57)
[2017-12-13] MEDS: DIGOXIN 0.125 MG TABLET PO SCH (13:55)
[2017-12-13] MEDS: SIMVASTATIN 40 MG TABLET PO SCH (21:41)
[2017-12-13] MEDS: LATANOPROST EYE DROP 0.005% 2.5 ML BOTTLE EACHEYE SCH (21:46)
[2017-12-14] VITALS (7 sets, daily range): BP systolic 123–186; BP diastolic 45–87
[2017-12-14] MEDS: MORPHINE SULFATE INJ 2 MG/ML DISP.SYRIN IV PRN ×2 (00:14→08:06)
[2017-12-14] MEDS: hydrALAZINE HCL IV 20 MG VIAL IV PRN ×2 (00:15→16:39)
[2017-12-14] MEDS: HYDROCODONE/APAP 5/325MG 1 EACH TABLET PO PRN (03:00)
[2017-12-14] MEDS: BLOOD SUGAR DIAGNOSTIC 1 EACH STRIP IN SCH ×2 (07:56→12:19)
[2017-12-14] MEDS: PANTOPRAZOLE 40 MG TABLET.DR PO SCH (07:56)
[2017-12-14] MEDS: LISINOPRIL (20MG) 20 MG TABLET PO SCH (08:01)
[2017-12-14] MEDS: LOSARTAN POTASSIUM 50 MG TABLET PO SCH (08:02)
[2017-12-14] MEDS: ACETAMINOPHEN 325 MG TABLET PO PRN (12:19)
[2017-12-14] MEDS: DIGOXIN 0.125 MG TABLET PO SCH (12:37)
[2017-12-14] MEDS ORDERED: SIMV40TA5 PO (13:17)
[2017-12-14] MEDS ORDERED: LISI20TA61 PO (13:17)
[2017-12-14] MEDS: CLONIDINE HCL 0.1 MG TABLET PO PRN (16:02)
--- NOTE | 2017-12-14 17:05 | NUR ---
RN NOTE PT DISCHARGED TO [facility], REPORT GIVEN TO FILI RUIZ, DISCHARGE PAPERWORK DONE, EXIT CARE DONE, PICTURES TAKEN, PAPERS SIGNED BY SON, ANNMARIE, BELONGINGS LIST SIGNED, IV REMOVED, ID BAND REMOVED. PT HAD HIGH BLOOD PRESSURE 186/78 MMHG, HYDRALAZINE AND CATAPRES GIVEN PRIOR TO DISCHARGE. BP DROPPED TO 145/65 MMHG. PT LEFT IN STABLE CONDITION. TEACHINGS DON, PT VERBALIZED UNDERSTANDING, FAMILY INVOLVED IN CARE AND DISCHARGE INSTRUCTIONS.
== END 2017-12-14 17:05 | DRG 64 ==
LOC: TELE 01:29 → MED 10:21 → ICU 12-09 10:06 → TELE1 12-12 18:10 → MEDSG1 12-14 08:30
PROVIDERS: ADMIT Internal Medicine
PROC: 30233K1 Transfusion of Nonautologous Frozen Plasma into Peripheral Vein, Percutaneous Approach (ICD-10-PCS; principal; 2017-12-09)
PROC: 30233M1 Transfusion of Nonautologous Plasma Cryoprecipitate into Peripheral Vein, Percutaneous Approach (ICD-10-PCS; 2017-12-10)
DX: I62.00 Nontraumatic subdural hemorrhage, unspecified (principal); I63.511 Cerebral infarction due to unspecified occlusion or stenosis of right middle cerebral artery; D68.59 Other primary thrombophilia; D32.0 Benign neoplasm of cerebral meninges; I10 Essential (primary) hypertension; E11.9 Type 2 diabetes mellitus without complications; I48.91 Unspecified atrial fibrillation; Z95.0 Presence of cardiac pacemaker; I49.9 Cardiac arrhythmia, unspecified
CPT/HCPCS: 36415; 70450-TC; 70496-TC; 70498-TC; 80048-TC; 80053-TC; 80061-TC; 80162-TC; 80305; 81000-TC; 82962-TC; 83735-TC; 83880; 84100-TC; 84443-TC; 84484-TC; 85025-TC; 85610-TC; 85652-TC; 85730-TC; 86850-TC; 87081-TC; 87086-TC; 92526; 92611-TC; 93307-TC; 93880-TC; 97112-TC; 97116-TC; 97530-TC; A6253; J0360; J1650; J2270; J2405; J3430; J7050; P9012; P9017-BL; Q9967